=== PATIENT | female | born 1950 | race Caucasian/White ===

== ENCOUNTER 2020-11-05 00:16 | Inpatient (IN) | payer OTHER, MEDICARE ==
[~2020-11-05] VITALS: Ht 162.6 cm; Wt 61.2 kg
[2020-11-05] MEDS ORDERED: MAGNESIUM/ALUMINUM HYDROXIDE/SIMETHICONE 30ML UDC PO SCH (01:32)
[2020-11-05] MEDS ORDERED: FAMOTIDINE 20MG/2ML VIAL IV SCH (01:32)
[2020-11-05] MEDS ORDERED: HYDRALAZINE 20MG/ML VIAL IV SCH (01:45)
[2020-11-05 02:04] LABS: BASOPHILS % 0.3 % (0.0-2.0); EOSINOPHILS % 0.3 % (0.0-5.0); HEMATOCRIT. 46.3 % (36.0-48.0); HEMOGLOBIN. 15.6 g/dL (12.0-16.0); LYMPHOCYTES % 11.9 % (20.0-50.0); MEAN CORPUSCULAR VOLUME 89.1 fL (81.0-99.0); MEAN PLATELET VOLUME 8.3 fl (7.4-10.4); MONOCYTES % 2.5 % (2.0-8.0); PLATELET 261 x1000/uL (130-400); RED BLOOD CELL COUNT 5.19 mill/uL (4.2-5.4); RED CELL DISTRIBUTION WIDTH 14.4 % (11.6-14.6)
[2020-11-05 02:16] LABS: CHLORIDE 102 mEq/L (98-107)
[2020-11-05 02:20] LABS: ETHANOL BLOOD < 10 mg/dL
[2020-11-05 02:23] LABS: PROTHROMBIN TIME 10.4 sec (9.6-11.0)
[2020-11-05] MEDS ORDERED: MORPHINE SULFATE 2 MG/ML CPJ (NOT FOR IM USE) IV ONE (05:00)
[2020-11-05] MEDS ORDERED: ONDANSETRON HCL 4MG/2ML INJ IV ONE (05:00)
[2020-11-05] MEDS ORDERED: LORAZEPAM 1MG TABLET PO ONE (05:45)
[2020-11-05] MEDS ORDERED: IOHEXOL-300 100 ML BOTTLE ONE (06:02)
[2020-11-05 12:00] VITALS: BP 137/74
[2020-11-05] MEDS ORDERED: DEXT 5%/0.45% NACL 1000ML 1,000 ML IV SCH (12:00)
[2020-11-05] MEDS ORDERED: IPRATROPIUM/ALBUTEROL 0.5-3(2.5)MG/3ML NEB NEB PRN (12:00)
[2020-11-05] MEDS ORDERED: LORAZEPAM 2MG/ML CPJ IV PRN (12:00)
[2020-11-05] MEDS ORDERED: ACETAMINOPHEN 650MG SUPP PR PRN (12:00)
[2020-11-05] MEDS ORDERED: DIPHENHYDRAMINE 50MG/ML VIAL IV PRN (12:00)
[2020-11-05] MEDS ORDERED: ONDANSETRON HCL 4MG/2ML INJ IV PRN (12:00)
[2020-11-05 12:19] VITALS: BP 136/81
[2020-11-05] MEDS: FAMOTIDINE 20MG/2ML VIAL IV SCH (13:19)
[2020-11-05] MEDS: ENOXAPARIN 40MG/0.4ML SYR SUBCUT SCH (14:52)
[2020-11-05 16:00] VITALS: BP 138/75
[2020-11-05] MEDS: MORPHINE SULFATE 2 MG/ML CPJ (NOT FOR IM USE) IV PRN ×2 (16:08→22:51)
[2020-11-05] MEDS: PIPERACILLIN/TAZOBACTAM 3.375 G in DEXT 5% WATER 100 ML IV SCH ×2 (18:25→22:42)
[2020-11-05 20:00] VITALS: BP 144/75
[2020-11-06] VITALS: BP 128/71
[2020-11-06 04:00] VITALS: BP 144/78
[2020-11-06] MEDS: PIPERACILLIN/TAZOBACTAM 3.375 G in DEXT 5% WATER 100 ML IV SCH ×4 (05:31→22:37)
[2020-11-06] MEDS: MORPHINE SULFATE 2 MG/ML CPJ (NOT FOR IM USE) IV PRN (05:44)
[2020-11-06] MEDS ORDERED: SKIN ADHESIVE 0.7 GM EA TOP ONE (06:49)
[2020-11-06] MEDS ORDERED: BUPIVACAINE HCL 0.5% (5MG/ML) 50ML ONE (06:49)
[2020-11-06] MEDS ORDERED: FENTANYL CITRATE/PF 50MCG/ML 2ML VIAL ONE (07:24)
[2020-11-06] MEDS ORDERED: PROPOFOL 200MG/20ML VIAL IV ONE (07:24)
[2020-11-06] MEDS ORDERED: ROCURONIUM BROMIDE 10MG/ML VIAL 5ML IV ONE (07:24)
[2020-11-06 07:50] LABS: BASOPHILS % 0.3 % (0.0-2.0); HEMATOCRIT. 43.6 % (36.0-48.0); HEMOGLOBIN. 14.3 g/dL (12.0-16.0); LYMPHOCYTES % 10.9 % (20.0-50.0); MEAN CORPUSCULAR HEMOGLOBIN 29.6 pg (28.0-32.0); MEAN CORPUSCULAR VOLUME 89.9 fL (81.0-99.0); MEAN PLATELET VOLUME 8.7 fl (7.4-10.4); MONOCYTES % 6.7 % (2.0-8.0); NEUTROPHILS % 82.1 % (40.0-76.0); PLATELET 224 x1000/uL (130-400); RED BLOOD CELL COUNT 4.85 mill/uL (4.2-5.4); RED CELL DISTRIBUTION WIDTH 14.5 % (11.6-14.6)
[2020-11-06 08:05] LABS: CHLORIDE 100 mEq/L (98-107)
[2020-11-06 08:17] LABS: T4 FREE 1.37 ng/dL (0.76-1.46)
[2020-11-06] MEDS ORDERED: METOCLOPRAMIDE HCL 10MG/2ML VIAL ONE (08:23)
[2020-11-06] MEDS ORDERED: DEXAMETHASONE 4MG/ML 1ML VIAL ONE (08:23)
[2020-11-06] MEDS ORDERED: CEFAZOLIN SODIUM 1000MG/VIAL ONE (08:23)
[2020-11-06] MEDS ORDERED: LIDOCAINE HCL 1% 20ML VIAL (Pyxis) INJ ONE (08:23)
[2020-11-06] MEDS ORDERED: ONDANSETRON HCL 4MG/2ML INJ ONE (08:23)
[2020-11-06] MEDS ORDERED: GLYCOPYRROLATE 0.2 MG/ML 2ML VIAL ONE (08:23)
[2020-11-06] MEDS ORDERED: EPHEDRINE SULFATE 50MG/ML VIAL ONE (08:23)
[2020-11-06] MEDS ORDERED: NEOSTIGMINE METHYLSULFATE 1MG/ML 10 ML VIAL ONE (08:23)
[2020-11-06] MEDS ORDERED: PHENYLEPHRINE HCL 10 MG/ML 1ML (IV VIAL) IV ONE (08:23)
[2020-11-06] MEDS ORDERED: HYDROMORPHONE HCL/PF 2MG/ML (OR) ONE (08:33)
[2020-11-06] MEDS ORDERED: HYDROCODONE/ACETAMINOPHEN 5/325MG TABLET PO PRN ×2 (08:45)
[2020-11-06] MEDS ORDERED: MORPHINE SULFATE 2 MG/ML CPJ (NOT FOR IM USE) IV PRN (08:45)
[2020-11-06] MEDS ORDERED: ONDANSETRON HCL 4MG/2ML INJ IV PRN ×2 (08:45→09:30)
[2020-11-06] MEDS ORDERED: MORPHINE SULFATE 4 MG/ML CPJ (NOT FOR IM USE) IV PRN (08:45)
[2020-11-06] MEDS: ENOXAPARIN 40MG/0.4ML SYR SUBCUT SCH (09:00)
[2020-11-06] MEDS: FAMOTIDINE 20MG/2ML VIAL IV SCH (09:00)
[2020-11-06] MEDS ORDERED: MEPERIDINE HCL/PF 25MG/ML CPJ IV PRN (09:30)
[2020-11-06] MEDS ORDERED: HYDROMORPHONE HCL/PF 2MG/ML CPJ IV PRN (09:30)
[2020-11-06] MEDS: DEXT 5%/0.45% NACL KCL 20MEQ/L 1,000 ML IV SCH ×2 (11:52→22:37)
[2020-11-06 12:00] VITALS: BP 135/64
[2020-11-06] MEDS: SODIUM CHLORIDE 0.9% INJ 3ML FLUSH IVF SCH ×2 (14:00→22:37)
[2020-11-06 16:00] VITALS: BP 142/82
[2020-11-06] MEDS: DOCUSATE SODIUM 100MG CAPSULE PO SCH (17:16)
[2020-11-06] MEDS: ACETAMINOPHEN 325MG TABLET PO PRN (23:34)
[2020-11-07] MEDS: PIPERACILLIN/TAZOBACTAM 3.375 G in DEXT 5% WATER 100 ML IV SCH ×4 (05:14→22:00)
[2020-11-07] MEDS: DEXT 5%/0.45% NACL KCL 20MEQ/L 1,000 ML IV SCH ×2 (05:15→19:11)
[2020-11-07] MEDS: SODIUM CHLORIDE 0.9% INJ 3ML FLUSH IVF SCH ×3 (05:15→21:38)
[2020-11-07] MEDS: ACETAMINOPHEN 325MG TABLET PO PRN ×2 (05:55→19:17)
[2020-11-07 06:17] LABS: CHLORIDE 98 mEq/L (98-107)
[2020-11-07 06:34] LABS: BASOPHILS % 0.1 % (0.0-2.0); HEMATOCRIT. 42.4 % (36.0-48.0); HEMOGLOBIN. 13.9 g/dL (12.0-16.0); LYMPHOCYTES % 8.8 % (20.0-50.0); MEAN CORPUSCULAR HEMOGLOBIN 29.4 pg (28.0-32.0); MEAN CORPUSCULAR VOLUME 89.5 fL (81.0-99.0); MEAN PLATELET VOLUME 8.7 fl (7.4-10.4); MONOCYTES % 5.5 % (2.0-8.0); NEUTROPHILS % 85.6 % (40.0-76.0); PLATELET 225 x1000/uL (130-400); RED BLOOD CELL COUNT 4.73 mill/uL (4.2-5.4); RED CELL DISTRIBUTION WIDTH 14.7 % (11.6-14.6)
[2020-11-07 08:00] VITALS: BP 132/69
[2020-11-07] MEDS: FAMOTIDINE 20MG/2ML VIAL IV SCH (10:02)
[2020-11-07] MEDS: ENOXAPARIN 40MG/0.4ML SYR SUBCUT SCH (10:03)
[2020-11-07] MEDS: DOCUSATE SODIUM 100MG CAPSULE PO SCH ×2 (10:03→19:10)
[2020-11-07 12:00] VITALS: BP 131/77
[2020-11-07 16:00] VITALS: BP 150/71
[2020-11-07] MEDS ORDERED: LACTULOSE 20G/30ML UDC PO NR (18:00)
[2020-11-07 20:00] VITALS: BP 144/75
[2020-11-08] VITALS: BP 143/83
[2020-11-08] MEDS: DEXT 5%/0.45% NACL KCL 20MEQ/L 1,000 ML IV SCH ×3 (01:51→21:04)
[2020-11-08 04:00] VITALS: BP 156/97
[2020-11-08] MEDS: PIPERACILLIN/TAZOBACTAM 3.375 G in DEXT 5% WATER 100 ML IV SCH ×4 (05:00→22:24)
[2020-11-08] MEDS: NITROGLYCERIN OINT 1GM/INCH UDPKT TD PRN ×2 (05:15→14:50)
[2020-11-08] MEDS: SODIUM CHLORIDE 0.9% INJ 3ML FLUSH IVF SCH ×3 (05:15→21:04)
[2020-11-08 08:00] VITALS: BP 150/77
[2020-11-08 08:49] LABS: CHLORIDE 104 mEq/L (98-107)
[2020-11-08 08:52] LABS: BASOPHILS % 0.2 % (0.0-2.0); EOSINOPHILS % 0.3 % (0.0-5.0); HEMATOCRIT. 37.6 % (36.0-48.0); HEMOGLOBIN. 12.4 g/dL (12.0-16.0); LYMPHOCYTES % 13.3 % (20.0-50.0); MEAN CORPUSCULAR HEMOGLOBIN 29.7 pg (28.0-32.0); MEAN PLATELET VOLUME 9.2 fl (7.4-10.4); MONOCYTES % 7.1 % (2.0-8.0); NEUTROPHILS % 79.1 % (40.0-76.0); PLATELET 215 x1000/uL (130-400); RED BLOOD CELL COUNT 4.18 mill/uL (4.2-5.4); RED CELL DISTRIBUTION WIDTH 14.6 % (11.6-14.6)
[2020-11-08] MEDS: ENOXAPARIN 40MG/0.4ML SYR SUBCUT SCH (09:00)
[2020-11-08] MEDS: DOCUSATE SODIUM 100MG CAPSULE PO SCH ×2 (09:00→17:00)
[2020-11-08] MEDS ORDERED: AMLODIPINE 5MG TABLET PO SCH (10:00)
[2020-11-08] MEDS: FAMOTIDINE 20MG/2ML VIAL IV SCH (10:27)
[2020-11-08 12:00] VITALS: BP 179/90
[2020-11-08] MEDS: ACETAMINOPHEN 325MG TABLET PO PRN (14:51)
[2020-11-08 16:00] VITALS: BP 149/85
[2020-11-08 20:00] VITALS: BP 136/78
[2020-11-08] MEDS: AMLODIPINE 5MG TABLET PO SCH (21:04)
[2020-11-08 21:53] LABS: CLARITY URINE CLEAR (CLEAR); COLOR URINE YELLOW (YELLOW); KETONES URINE NEGATIVE (NEGATIVE); LEUKOCYTE ESTERASE URINE 2+ (NEGATIVE); NITRITE URINE NEGATIVE (NEGATIVE); OCCULT BLOOD URINE TRACE (NEGATIVE); PH URINE 7.5 (4.5-8.0); PROTEIN URINE NEGATIVE (NEGATIVE); SPECIFIC GRAVITY URINE 1.009 (1.005-1.030); UROBILINOGEN URINE 0.2 E.U./dL (0.2-1.0)
[2020-11-09] VITALS: BP 146/84
[2020-11-09] MEDS: ACETAMINOPHEN 325MG TABLET PO PRN ×2 (02:13→21:19)
[2020-11-09 04:00] VITALS: BP 143/84
[2020-11-09] MEDS: PIPERACILLIN/TAZOBACTAM 3.375 G in DEXT 5% WATER 100 ML IV SCH ×4 (05:45→23:02)
[2020-11-09] MEDS: SODIUM CHLORIDE 0.9% INJ 3ML FLUSH IVF SCH ×3 (05:45→21:19)
[2020-11-09 08:00] VITALS: BP 157/91
[2020-11-09] MEDS: DEXT 5%/0.45% NACL KCL 20MEQ/L 1,000 ML IV SCH ×2 (08:00→17:49)
[2020-11-09 08:17] LABS: BASOPHILS % 0.3 % (0.0-2.0); EOSINOPHILS % 1.2 % (0.0-5.0); HEMATOCRIT. 36.5 % (36.0-48.0); LYMPHOCYTES % 17.5 % (20.0-50.0); MEAN CORPUSCULAR HEMOGLOBIN 29.4 pg (28.0-32.0); MEAN CORPUSCULAR VOLUME 89.5 fL (81.0-99.0); MEAN PLATELET VOLUME 8.5 fl (7.4-10.4); MONOCYTES % 7.4 % (2.0-8.0); NEUTROPHILS % 73.6 % (40.0-76.0); PLATELET 234 x1000/uL (130-400); RED BLOOD CELL COUNT 4.08 mill/uL (4.2-5.4); RED CELL DISTRIBUTION WIDTH 14.6 % (11.6-14.6)
[2020-11-09 08:22] LABS: CHLORIDE 106 mEq/L (98-107)
[2020-11-09] MEDS: DOCUSATE SODIUM 100MG CAPSULE PO SCH ×2 (09:00→17:00)
[2020-11-09] MEDS: ENOXAPARIN 40MG/0.4ML SYR SUBCUT SCH (09:00)
[2020-11-09] MEDS: AMLODIPINE 5MG TABLET PO SCH ×2 (11:25→21:19)
[2020-11-09] MEDS: FAMOTIDINE 20MG/2ML VIAL IV SCH (11:25)
[2020-11-09 12:00] VITALS: BP 162/87
[2020-11-09 16:00] VITALS: BP 166/86
[2020-11-09 20:00] VITALS: BP 150/83
[2020-11-10] VITALS: BP 145/80
[2020-11-10 04:22] VITALS: BP 152/81
[2020-11-10] MEDS: PIPERACILLIN/TAZOBACTAM 3.375 G in DEXT 5% WATER 100 ML IV SCH ×3 (05:47→23:02)
[2020-11-10] MEDS: DEXT 5%/0.45% NACL KCL 20MEQ/L 1,000 ML IV SCH ×2 (05:48→14:00)
[2020-11-10] MEDS: SODIUM CHLORIDE 0.9% INJ 3ML FLUSH IVF SCH ×3 (06:00→23:02)
[2020-11-10 07:32] LABS: BASOPHILS % 0.3 % (0.0-2.0); EOSINOPHILS % 2.3 % (0.0-5.0); HEMATOCRIT. 38.6 % (36.0-48.0); HEMOGLOBIN. 12.9 g/dL (12.0-16.0); LYMPHOCYTES % 17.9 % (20.0-50.0); MEAN CORPUSCULAR HEMOGLOBIN 29.9 pg (28.0-32.0); MEAN CORPUSCULAR VOLUME 89.7 fL (81.0-99.0); MEAN PLATELET VOLUME 8.1 fl (7.4-10.4); MONOCYTES % 7.2 % (2.0-8.0); NEUTROPHILS % 72.3 % (40.0-76.0); PLATELET 299 x1000/uL (130-400); RED CELL DISTRIBUTION WIDTH 14.5 % (11.6-14.6)
[2020-11-10 07:34] LABS: PARTIAL THROMBOPLASTIN TIME 30.2 sec (23.4-31.0); PROTHROMBIN TIME 10.2 sec (9.6-11.0)
[2020-11-10 07:37] LABS: CHLORIDE 104 mEq/L (98-107)
[2020-11-10 08:00] VITALS: BP 134/90
[2020-11-10] MEDS: DOCUSATE SODIUM 100MG CAPSULE PO SCH ×2 (08:41→17:00)
[2020-11-10] MEDS: AMLODIPINE 5MG TABLET PO SCH ×2 (08:42→23:02)
[2020-11-10] MEDS: ENOXAPARIN 40MG/0.4ML SYR SUBCUT SCH (08:42)
[2020-11-10] MEDS: FAMOTIDINE 20MG/2ML VIAL IV SCH (08:50)
[2020-11-10] MEDS ORDERED: SIMETHICONE 40 MG/0.6 ML 30ML ONE (11:58)
[2020-11-10] MEDS ORDERED: IOHEXOL-300 100 ML BOTTLE ONE (11:58)
[2020-11-10] MEDS ORDERED: MIDAZOLAM HCL 2 MG/2 ML VIAL ONE (16:42)
[2020-11-10] MEDS ORDERED: HYDROMORPHONE HCL/PF 2MG/ML (OR) ONE (16:42)
[2020-11-10] MEDS ORDERED: LABETALOL 5MG/ML SYR 20 MG/4 ML SYRINGE IV PRN (17:45)
[2020-11-10] MEDS ORDERED: HYDROMORPHONE HCL/PF 2MG/ML CPJ IV PRN (17:45)
[2020-11-10] MEDS ORDERED: ONDANSETRON HCL 4MG/2ML INJ IV PRN (17:45)
[2020-11-10] MEDS ORDERED: MEPERIDINE HCL/PF 25MG/ML CPJ IV PRN (17:45)
[2020-11-10] MEDS ORDERED: FLUMAZENIL 0.1 MG/ML 5ML VIAL IV PRN (19:00)
[2020-11-10] MEDS: NALOXONE HCL 0.4 MG/ML 1ML VIAL IV PRN ×3 (20:10→20:28)
[2020-11-10 21:29] LABS: HEMATOCRIT 38.9 % (36.0-48.0); HEMOGLOBIN 13.1 g/dL (12.0-16.0); MEAN CORPUSCULAR HEMOGLOBIN 30.1 pg (28.0-32.0); MEAN CORPUSCULAR VOLUME 89.7 fL (81.0-99.0); PLATELET 331 x1000/uL (130-400); RED BLOOD CELL COUNT 4.34 mill/uL (4.2-5.4); RED CELL DISTRIBUTION WIDTH 14.8 % (11.6-14.6)
[2020-11-10 21:35] LABS: CHLORIDE 105 mEq/L (98-107)
[2020-11-10 22:00] VITALS: BP 136/84
[2020-11-11] MEDS: DEXT 5%/0.45% NACL KCL 20MEQ/L 1,000 ML IV SCH ×2 (02:11→09:36)
[2020-11-11] MEDS: PIPERACILLIN/TAZOBACTAM 3.375 G in DEXT 5% WATER 100 ML IV SCH ×2 (06:25→09:36)
[2020-11-11] MEDS: SODIUM CHLORIDE 0.9% INJ 3ML FLUSH IVF SCH (06:25)
[2020-11-11 08:00] VITALS: BP 153/63
[2020-11-11 08:27] LABS: BASOPHILS % 0.2 % (0.0-2.0); EOSINOPHILS % 0.5 % (0.0-5.0); HEMATOCRIT. 38.4 % (36.0-48.0); HEMOGLOBIN. 12.6 g/dL (12.0-16.0); LYMPHOCYTES % 11.2 % (20.0-50.0); MEAN CORPUSCULAR HEMOGLOBIN 29.7 pg (28.0-32.0); MEAN CORPUSCULAR VOLUME 90.5 fL (81.0-99.0); MEAN PLATELET VOLUME 8.1 fl (7.4-10.4); MONOCYTES % 7.4 % (2.0-8.0); NEUTROPHILS % 80.7 % (40.0-76.0); PLATELET 282 x1000/uL (130-400); RED BLOOD CELL COUNT 4.24 mill/uL (4.2-5.4)
[2020-11-11 08:41] LABS: CHLORIDE 105 mEq/L (98-107)
[2020-11-11] MEDS: DOCUSATE SODIUM 100MG CAPSULE PO SCH (09:00)
[2020-11-11] MEDS: FAMOTIDINE 20MG/2ML VIAL IV SCH (09:36)
[2020-11-11] MEDS: AMLODIPINE 5MG TABLET PO SCH (09:36)
[2020-11-11] MEDS: ENOXAPARIN 40MG/0.4ML SYR SUBCUT SCH (09:56)
== END 2020-11-11 15:40 | disposition home or self-care (01) | DRG 419 ==
LOC: ER 00:16 → 6EST 06:22 → ENRESERV 09:40
PROVIDERS: ADMIT Internal Medicine; ATTEND Internal Medicine
PROC: 0FT44ZZ Resection of Gallbladder, Percutaneous Endoscopic Approach (ICD-10-PCS; principal; 2020-11-06)
PROC: 0FC98ZZ Extirpation of Matter from Common Bile Duct, Via Natural or Artificial Opening Endoscopic (ICD-10-PCS; 2020-11-10)
DX: K80.00 Calculus of gallbladder with acute cholecystitis without obstruction (principal); I10 Essential (primary) hypertension; R73.9 Hyperglycemia, unspecified; K57.10 Diverticulosis of small intestine without perforation or abscess without bleeding; K76.0 Fatty (change of) liver, not elsewhere classified; K66.0 Peritoneal adhesions (postprocedural) (postinfection); K76.89 Other specified diseases of liver; N28.1 Cyst of kidney, acquired; R74.01 Elevation of levels of liver transaminase levels; Z20.822 Contact with and (suspected) exposure to COVID-19; Z83.3 Family history of diabetes mellitus; Z79.899 Other long term (current) drug therapy
CPT/HCPCS: 36415; 71045; 74177; 74181; 74328; 76700; 78227; 80048; 80053; 80076; 80320; 81003; 82962; 83036; 83605; 84145; 84439; 84443; 84484; 85025; 85027; 86850; 86900; 87426; 88304; 93005; 93306; 93970; 96374; 99285; A9537; C1726; C1769; J0360; J0690; J1100; J1170; J1650; J2250; J2270; J2310; J2370; J2405; J2543; J2704; J2710; J2765; J3010; J3490; J7030; J7060; Q9967; G0480